=== PATIENT | male | born 1990 | race Two or more races ===

== ENCOUNTER 2016-07-17 08:00 | Emergency (ER) | payer BC ==
[~2016-07-17] VITALS: Ht 170.2 cm; Wt 63.5 kg
[2016-07-17] MEDS ORDERED: IV NORMAL SALINE 500ML BAG 500 ML IV SCH (08:30)
--- NOTE | 2016-07-17 08:36 | PHYS DOC ---
Past Medical History Past Medical History: No Pertinent History Past Surgical History: No Surgical History Alcohol Use: None Drug Use: None Adult General Chief Complaint Chief Complaint: NAUSEA/VOMITING/DIARRHA HPI HPI Patient is a 25 year old male, who is a [place] immigrant, comes the emergency room today with a complaint of 3 episodes of loose, black stools and one episode of vomiting with, what he refers to as "black stuff" in his vomitus. Patient states that the first black stool was at 10 PM last night. His last by mouth intake was 8 PM yesterday evening. He denies eating anything different. He reports the single episode of vomiting was approximately 1-1/2 hours prior to arrival. Patient denies history of gastrointestinal disease. He denies any history of abdominal surgeries or bowel obstructions. He denies any preceding illnesses such as fevers, chills, myalgias or arthralgias. He denies any unexplained weight loss. He comes in today at the urging of his who is very concerned about him. Patient also denies any history of coagulopathies or being on blood thinners. He denies bleeding from his gums, hematuria or bruising easily. Review of Systems Review of Systems Constitutional: Denies fever or chills [] Eyes: Denies change in visual acuity, redness, or eye pain [] HENT: Denies nasal congestion or sore throat [] Respiratory: Denies cough or shortness of breath [] Cardiovascular: No additional information not addressed in HPI [] GI: Denies abdominal pain, nausea, vomiting, bloody stools or diarrhea [] : Denies dysuria or hematuria [] Musculoskeletal: Denies back pain or joint pain [] Integument: Denies rash or skin lesions [] Neurologic: Denies headache, focal weakness or sensory changes [] Endocrine: Denies polyuria or polydipsia [] Current Medications Current Medications Current Medications Medications (Trade) Dose Ordered Sig/Morris Start Time Stop Time Status Last Admin Dose Admin Sodium Chloride (Iv Sodium Chloride 0.9% 500ml Bag) 500 ml @ 500 mls/hr Q1H 07/17/16 08:30 07/17/16 08:58 500 MLS/HR Allergies Allergies Allergies Coded Allergies Type Severity Reaction Last Updated Verified No Known Drug Allergies 07/17/16 No Physical Exam Physical Exam Constitutional: Well developed, well nourished, no acute distress, non-toxic appearance. [] HENT: Normocephalic, atraumatic, bilateral external ears normal, oropharynx moist, no oral exudates, nose normal. Posterior oropharynx is without any evidence of residual blood. There is no gingival swelling or bleeding from the gums. Eyes: PERRLA, EOMI, conjunctiva normal, no discharge. [] Neck: Normal range of motion, no tenderness, supple, no stridor. [] Cardiovascular:Heart rate regular rhythm, no murmur [] Lungs & Thorax: Bilateral breath sounds clear to auscultation [] Abdomen: Abdomen is soft and nondistended. There are hypoactive bowel sounds are 4 quadrants. There is no palpable defect to the abdominal wall or pulsatile mass. There is no rebound or guarding. Digital rectal exam yields black material on the glove without any normal colored stool. This is sent to the lab for guaiac testing. Skin: Warm, dry, no erythema, no rash. There are no purpuric patches or petechiae. There is no bruising. Back: No tenderness, no CVA tenderness. [] Extremities: No tenderness, no cyanosis, no clubbing, ROM intact, no edema. [] Neurologic: Alert and oriented X 3, normal motor function, normal sensory function, no focal deficits noted. Psychologic: Affect normal, judgement normal, mood normal. [] Current Patient Data Vital Signs Vital Signs Date Time Temp Pulse Resp B/P Pulse Ox O2 Delivery O2 Flow Rate FiO2 07/17/16 08:09 97.8 88 16 123/73 100 Room Air 97.8 Lab Values Laboratory Tests Test 07/17/16 08:00 07/17/16 08:05 Stool Occult Blood Positive (NEG) White Blood Count 10.8x10^3/uL (4.0-11.0) Red Blood Count 3.86x10^6/uL (4.30-5.70) L Hemoglobin 12.6g/dL (13.0-17.5) L Hematocrit 37.2% (39.0-53.0) L Mean Corpuscular Volume 96fL (79-100) Mean Corpuscular Hemoglobin 33pg (25-35) Mean Corpuscular Hemoglobin Concent 34g/dL (31-37) Red Cell Distribution Width 12.9% (11.5-14.5) Platelet Count 170x10^3/uL (140-400) Neutrophils (%) (Auto) 61% (31-73) Lymphocytes (%) (Auto) 27% (24-48) Monocytes (%) (Auto) 8% (0-9) Eosinophils (%) (Auto) 3% (0-3) Basophils (%) (Auto) 0% (0-3) Neutrophils # (Auto) 6.6x10^3uL (1.8-7.7) Lymphocytes # (Auto) 3.0x10^3/uL (1.0-4.8) Monocytes # (Auto) 0.9x10^3/uL (0.0-1.1) Eosinophils # (Auto) 0.4x10^3/uL (0.0-0.7) Basophils # (Auto) 0.0x10^3/uL (0.0-0.2) Prothrombin Time 13.5SEC (11.7-14.0) Prothrombin Time INR 1.1 (0.8-1.1) PTT 28SEC (24-38) Sodium Level 139mmol/L (136-145) Potassium Level 4.3mmol/L (3.5-5.1) Chloride Level 103mmol/L (98-107) Carbon Dioxide Level 30mmol/L (21-32) Anion Gap 6 (6-14) Blood Urea Nitrogen 42mg/dL (8-26) H Creatinine 1.0mg/dL (0.7-1.3) Estimated GFR (Cockcroft-Gault) 90.3 BUN/Creatinine Ratio 42 (6-20) H Glucose Level 107mg/dL (70-99) H Calcium Level 8.4mg/dL (8.5-10.1) L Total Bilirubin 0.7mg/dL (0.2-1.0) Aspartate Amino Transferase (AST) 25U/L (15-37) Alanine Aminotransferase (ALT) 39U/L (16-63) Alkaline Phosphatase 48U/L (46-116) Total Protein 7.2g/dL (6.4-8.2) Albumin 3.7g/dL (3.4-5.0) Albumin/Globulin Ratio 1.1 (1.0-1.7) Laboratory Tests 07/17/16 08:05 Laboratory Tests 07/17/16 08:05 EKG EKG [] Radiology/Procedures Radiology/Procedures [] Course & Med Decision Making Course & Med Decision Making Patient has had an uncomplicated stay here in the emergency department. He's not had a bowel movement or vomiting during his stay here. Patient does have an upper GI bleed, most likely gastritis. However, patient is from [place] and there is documented increased incidence of gastric carcinoma within this region. It is very important patient follow-up with a GI doctor as well as primary care doctor. Patient will be placed on Reglan as a prokinetic and omeprazole. Patient will be provided information for PCP follow-up as well as GI. Dragon Disclaimer Dragon Disclaimer This electronic medical record was generated, in whole or in part, using a voice recognition dictation system. Departure Departure Impression: Primary Impression: Gastritis Additional Impression: GI bleed Disposition: HOME, SELF-CARE Condition: STABLE Referrals: NON,STAFF (PCP) SAMIR SANTANA MD Patient Instructions: Gastritis, Adult, [id number], Gastrointestinal Bleeding , [id number] Additional Instructions: 1. Your physical exam and lab test today confirm that you have bleeding in your upper gastrointestinal tract. This will need to be further explored by a piece hand. A number is been provided to you to call Monday to schedule an appointment. 2. It is also very important to follow-up with a primary care doctor. A pamphlet is provided to you for assistance in finding a primary care doctor. You will need to call Monday to schedule follow-up appointment as well. 3. Review the discharge instructions provided for self-care and reasons to return to the emergency department. 4. Take the medication as prescribed. Avoid hot, spicy foods, caffeinated beverages and alcoholic beverages as well until your follow-up with a primary care doctor and piece hand. Scripts Omeprazole 20 Mg Capsule.dr1 Cap PO DAILY #30 CAP Ref 0 Prov:LOTUS KENT 07/17/16 Metoclopramide Hcl (Reglan)10 Mg Tablet1 Tab PO TID #30 TAB Prov:LOTUS KENT 07/17/16 Problem Qualifiers LOTUS KENT Jul 17, 2016 08:36
[2016-07-17 08:42] LABS: BASO % 0 % (0-3); EOS % 3 % (0-3); HEMATOCRIT 37.2 % (39.0-53.0); HEMOGLOBIN 12.6 g/dL (13.0-17.5); LYMPH % 27 % (24-48); MEAN CORPUSCULAR HEMOGLOBIN 33 pg (25-35); MEAN CORPUSCULAR HGB CONC 34 g/dL (31-37); MEAN CORPUSCULAR VOLUME 96 fL (79-100); MONO % 8 % (0-9); NEUT % 61 % (31-73); PLATELET COUNT 170 x10^3/uL (140-400); RED BLOOD COUNT 3.86 x10^6/uL (4.30-5.70); RED CELL DISTRIBUTION WIDTH 12.9 % (11.5-14.5); WHITE BLOOD COUNT 10.8 x10^3/uL (4.0-11.0)
[2016-07-17 08:52] LABS: INR 1.1 (0.8-1.1); PROTHROMBIN TIME PATIENT 13.5 SEC (11.7-14.0)
[2016-07-17 08:53] LABS: NEG OBC FOB NEG; POS OBC FOB POS
[2016-07-17 08:55] LABS: CALCIUM 8.4 mg/dL (8.5-10.1); GFR 90.3; POTASSIUM 4.3 mmol/L (3.5-5.1)
[2016-07-17 09:00] LABS: ALBUMIN 3.7 g/dL (3.4-5.0); ALBUMIN/GLOBULIN RATIO 1.1 (1.0-1.7); TOTAL BILIRUBIN 0.7 mg/dL (0.2-1.0); TOTAL PROTEIN 7.2 g/dL (6.4-8.2)
[2016-07-17 09:45] VITALS: BP 117/66
[2016-07-17] MEDS ORDERED: OMEP20CA9 PO (09:46)
[2016-07-17] MEDS ORDERED: METO10TA81 PO (09:46)
== END 2016-07-17 09:59 | disposition home or self-care (01) ==
LOC: ER 08:00
DX: K29.71 Gastritis, unspecified, with bleeding (principal)
CPT/HCPCS: 36415; 80053; 82274; 85027; 85610; 85730; 96360; 99284; J7040